=== PATIENT | male | born 1960 | race Caucasian/White ===

== ENCOUNTER → 2018-09-12 | Outpatient (CLI) | payer OTHER ==
[~2018-09-12] MED LIST: ACCUPRIL20 MG; AUGMENTIN 875 M1 TAB PO; CYCLOBENZAPRINE10 MG PO; FLUTICASON0.05 MG/A2 NAS; MOTRIN800 MG PO; NORCO 325 MG-51 TAB PO; PREDNICOT10 MG PO; ROBITUSSIN DM120 ML PO; ULTRAM50 MG PO; VIBRAMYCIN100 MG PO
== END | disposition home or self-care (01) ==
LOC: US 07:16
DX: R10.11 Right upper quadrant pain (principal); I10 Essential (primary) hypertension

== ENCOUNTER → 2020-03-03 | Outpatient (CLI) | payer OTHER | END | disposition home or self-care (01) | LOC: COVID19 10:59 | PROVIDERS: ATTEND Internal Medicine | DX: U07.1 COVID-19 (principal) ==

== ENCOUNTER → 2021-09-03 | Outpatient (CLI) | payer BC, OTHER ==
[2021-09-03 09:05] LABS: CHOLESTEROL 197 mg/dL (<200); LDL CHOLESTEROL 125 mg/dL (9-159); TRIGLYCERIDES 159 mg/dl (<150)
== END | disposition home or self-care (01) ==
LOC: CARD 07:30 → LAB 08:00
PROVIDERS: Internal Medicine Cardiovascular Disease; ATTEND Family Medicine
DX: Z13.220 Encounter for screening for lipoid disorders (principal); I48.91 Unspecified atrial fibrillation

== ENCOUNTER 2022-01-17 09:00 | Emergency (ER) | payer BC, OTHER ==
[~2022-01-17] VITALS: Ht 172.7 cm; Wt 94.8 kg
[2022-01-17] MEDS ORDERED: MUCINEX DM 30/61 TAB PO (10:04)
[2022-01-17] MEDS ORDERED: POLYTRIM 1000010 M1 OPH (10:04)
== END 2022-01-17 09:53 | disposition home or self-care (01) ==
LOC: ED 09:00
DX: J06.9 Acute upper respiratory infection, unspecified (principal); Z20.822 Contact with and (suspected) exposure to COVID-19; H10.9 Unspecified conjunctivitis; Z98.890 Other specified postprocedural states

== ENCOUNTER → 2022-10-28 | Outpatient (CLI) | payer BC, OTHER ==
[~2022-10-28] MED LIST changes: +MUCINEX DM 30/61 TAB PO; +POLYTRIM 1000010 M1 OPH
[2022-10-28 07:58] LABS: HEMATOCRIT 43.6 % (42.0-52.0); MEAN CELL VOLUME 88.1 fl (80.0-94.0); MEAN CORPUSCULAR HGB 30.9 pg (27.0-31.0); MEAN CORPUSCULAR HGB CONC 35.1 g/dl (33.0-37.0); RED BLOOD COUNT 4.95 10*6/uL (4.50-5.90); WHITE BLOOD COUNT 6.2 10*3/uL (4.8-10.8)
[2022-10-28 08:38] LABS: ALKALINE PHOSPHATASE 97 U/L (46-116); BUN 15 mg/dl (9-23); CHLORIDE 100 mmol/L (98-107); CHOLESTEROL 183 mg/dL (<200); LDL CHOLESTEROL 113 mg/dL (9-159); POTASSIUM 4.1 mmol/L (3.4-5.1); SGPT/ALT 52 U/L (10-49); TOTAL PROTEIN 7.7 gm/dL (6.0-8.0); TRIGLYCERIDES 144 mg/dl (<150)
[2022-10-28 08:45] LABS: VITAMIN D, 25-HYDROXY 32.3 ng/mL (30-100)
== END | disposition home or self-care (01) ==
LOC: LAB 07:30
PROVIDERS: ATTEND Family Medicine
DX: Z12.5 Encounter for screening for malignant neoplasm of prostate (principal); Z00.00 Encounter for general adult medical examination without abnormal findings; I10 Essential (primary) hypertension; E78.00 Pure hypercholesterolemia, unspecified; K21.9 Gastro-esophageal reflux disease without esophagitis; R10.9 Unspecified abdominal pain

== ENCOUNTER → 2023-05-10 | Day surgery (SDC) | payer OTHER ==
[~2023-05-10] VITALS: Ht 195.5 cm; Wt 92.5 kg
[~2023-05-10] MED LIST changes: +ELIQUIS5 M1 PO; +Lactated Ringer's Solution 1,000 ML IV ONE; +Midazolam Hydrochloride 2 MG/2 ML VIAL IV ONE; +PRILOSEC20 M1 PO; +PROPOFOL 200 MG/20 ML VIAL IV ONE
[2023-05-10 12:00] VITALS: BP 128/88
[2023-05-10 14:40] VITALS: BP 111/84
[2023-05-10 14:55] VITALS: BP 107/55
[2023-05-10 15:10] VITALS: BP 123/83
== END | disposition home or self-care (01) ==
LOC: SDC 05-06 12:30
PROVIDERS: ATTEND Surgery
DX: Z12.11 Encounter for screening for malignant neoplasm of colon (principal); D12.3 Benign neoplasm of transverse colon; K62.1 Rectal polyp; K63.5 Polyp of colon; K57.30 Diverticulosis of large intestine without perforation or abscess without bleeding; K29.50 Unspecified chronic gastritis without bleeding; K21.9 Gastro-esophageal reflux disease without esophagitis; I10 Essential (primary) hypertension; I48.91 Unspecified atrial fibrillation; Z87.891 Personal history of nicotine dependence; Z98.890 Other specified postprocedural states; Z79.899 Other long term (current) drug therapy; Z82.3 Family history of stroke; Z83.3 Family history of diabetes mellitus; Z82.49 Family history of ischemic heart disease and other diseases of the circulatory system

== ENCOUNTER 2023-06-19 07:28 | Emergency (ER) | payer OTHER ==
[~2023-06-19] VITALS: Ht 172.7 cm; Wt 92.5 kg
[~2023-06-19 07:28] MED LIST changes: -Lactated Ringer's Solution 1,000 ML IV ONE; -Midazolam Hydrochloride 2 MG/2 ML VIAL IV ONE; -PROPOFOL 200 MG/20 ML VIAL IV ONE
== END 2023-06-19 07:49 | disposition home or self-care (01) ==
LOC: ED 07:28
DX: S83.91XA Sprain of unspecified site of right knee, initial encounter (principal); I10 Essential (primary) hypertension; I48.91 Unspecified atrial fibrillation; K21.9 Gastro-esophageal reflux disease without esophagitis; Z98.890 Other specified postprocedural states; X50.1XXA Overexertion from prolonged static or awkward postures, initial encounter; Y93.01 Activity, walking, marching and hiking; Y92.89 Other specified places as the place of occurrence of the external cause; Y99.0 Civilian activity done for income or pay

== ENCOUNTER → 2023-06-21 | Outpatient (CLI) | payer OTHER | END | disposition home or self-care (01) | LOC: RAD 16:53 | PROVIDERS: ATTEND Nurse Practitioner Primary Care | DX: M17.11 Unilateral primary osteoarthritis, right knee (principal); M25.561 Pain in right knee ==

== ENCOUNTER → 2023-06-28 | Outpatient (CLI) | payer OTHER ==
[~2023-06-28] MED LIST changes: +CENTRUM ADULTS1 EACH PO; +HYDR25T PO; +LISINOPRIL40 MG PO; +MOVE FREE JOIN1 EACH PO; +OMEPRAZOLE40 MG PO
[2023-06-28 14:00] LABS: ACT PARTIAL THROMBO TIME 29.2 SECONDS (20.0-32.1)
[2023-06-28 14:04] LABS: BUN 16 mg/dl (9-23); CHLORIDE 99 mmol/L (98-107); POTASSIUM 3.6 mmol/L (3.4-5.1)
== END | disposition home or self-care (01) ==
LOC: LAB 12:44
PROVIDERS: ATTEND Orthopaedic Surgery
DX: M17.11 Unilateral primary osteoarthritis, right knee (principal); M23.41 Loose body in knee, right knee

== ENCOUNTER → 2023-07-01 | Day surgery (SDC) | payer OTHER ==
[~2023-07-01] VITALS: Ht 172.7 cm; Wt 91.6 kg
[~2023-07-01] MED LIST changes: +Bupivacaine Hydrochloride/Ep2 30 ML VIAL ONE; +HYDROCODONE-AC1 EAC1 PO; +Lactated Ringer's Solution 1,000 ML IV ONE; +Lactated Ringer's Solution 1,000 ML IV SCH; +Midazolam Hydrochloride 2 MG/2 ML VIAL IV STA; +PROPOFOL 200 MG/20 ML VIAL IV ONE; +SEVOFLURANE 250 ML BOT INH ONE; +ceFAZolin sodium/sodium chlor 1 GM in SYRINGE INFUSION 10 ML IV STA; +ceFAZolin sodium/sodium chlor 10 ML IV ONE
[2023-07-01 06:42] VITALS: BP 115/74
[2023-07-01 08:35] VITALS: BP 106/66
[2023-07-01 08:50] VITALS: BP 101/61
[2023-07-01 09:05] VITALS: BP 106/71
[2023-07-01 09:20] VITALS: BP 102/63
[2023-07-01 09:30] VITALS: BP 110/80
== END | disposition home or self-care (01) ==
LOC: SDC 06-28 13:15
PROVIDERS: ATTEND Orthopaedic Surgery
DX: M23.41 Loose body in knee, right knee (principal); M17.11 Unilateral primary osteoarthritis, right knee; I10 Essential (primary) hypertension; I48.91 Unspecified atrial fibrillation; K21.9 Gastro-esophageal reflux disease without esophagitis; F10.90 Alcohol use, unspecified, uncomplicated; Z87.891 Personal history of nicotine dependence; Z98.890 Other specified postprocedural states; Z79.899 Other long term (current) drug therapy; Z82.3 Family history of stroke; Z82.49 Family history of ischemic heart disease and other diseases of the circulatory system

== ENCOUNTER 2024-06-03 09:38 | Emergency (ER) | payer OTHER ==
[~2024-06-03] VITALS: Ht 172.7 cm; Wt 91.6 kg
[~2024-06-03 09:38] MED LIST changes: -Bupivacaine Hydrochloride/Ep2 30 ML VIAL ONE; -Lactated Ringer's Solution 1,000 ML IV ONE; -Lactated Ringer's Solution 1,000 ML IV SCH; -Midazolam Hydrochloride 2 MG/2 ML VIAL IV STA; -PROPOFOL 200 MG/20 ML VIAL IV ONE; -SEVOFLURANE 250 ML BOT INH ONE; -ceFAZolin sodium/sodium chlor 1 GM in SYRINGE INFUSION 10 ML IV STA; -ceFAZolin sodium/sodium chlor 10 ML IV ONE
[2024-06-03] MEDS ORDERED: GOOD NEIGHBOR L10 MG PO (09:53)
[2024-06-03] MEDS ORDERED: AMOXICILLIN500 M2 PO (09:53)
[2024-06-03] MEDS ORDERED: VITAMIN D325 MCG PO (09:54)
[2024-06-03] MEDS ORDERED: diazePAM 5 MG TAB PO ONE (09:55)
[2024-06-03] MEDS ORDERED: SODIUM CHLORIDE 0.9% 1,000 ML IV ONE (09:55)
[2024-06-03] MEDS ORDERED: Meclizine Hydrochloride 25 MG TAB PO ONE (09:55)
[2024-06-03 10:09] LABS: BASO % 0.3 % (0.0-1.0); EOS % 0.1 % (1.0-4.0); HEMATOCRIT 46.1 % (42.0-52.0); MEAN CELL VOLUME 88.1 fl (80.0-94.0); MEAN CORPUSCULAR HGB 30.6 pg (27.0-31.0); MEAN CORPUSCULAR HGB CONC 34.7 g/dl (33.0-37.0); MEAN PLATELET VOLUME 10.2 fl (9.6-12.3); MONO # 0.8 10*3/uL (0.1-1.0); MONO % 10.3 % (3.0-9.0); NEUT # 5.1 10*3/uL (2.3-7.9); NEUT % 64.1 % (47.0-73.0); PLATELET COUNT AUTOMATED 228 10*3/uL (130-400); RED BLOOD COUNT 5.23 10*6/uL (4.50-5.90); RED CELL DISTRI WIDTH 12.6 % (0-14.5); WHITE BLOOD COUNT 7.9 10*3/uL (4.8-10.8)
[2024-06-03 10:28] LABS: BUN 24 mg/dl (9-23); CHLORIDE 102 mmol/L (98-107); POTASSIUM 3.7 mmol/L (3.4-5.1)
[2024-06-03] MEDS ORDERED: ANTIVERT25 M2 PO (10:50)
== END 2024-06-03 10:58 | disposition home or self-care (01) ==
LOC: ED 09:38
PROVIDERS: Emergency Medicine
DX: H81.10 Benign paroxysmal vertigo, unspecified ear (principal); R11.0 Nausea; R19.7 Diarrhea, unspecified; I10 Essential (primary) hypertension; K21.9 Gastro-esophageal reflux disease without esophagitis; I48.91 Unspecified atrial fibrillation; Z79.899 Other long term (current) drug therapy; Z98.890 Other specified postprocedural states